=== PATIENT | female | born 1980 | race Caucasian/White ===

== ENCOUNTER 2017-05-20 05:56 | Observation (INO) | payer OTHER ==
--- NOTE | 2017-05-20 07:07 | XR ---
RIGHT ANKLE 3 VIEWS INDICATION: Right ankle pain COMPARISON: None FINDINGS: AP, mortise, and lateral views of the right ankle are obtained. The ankle mortise is incongruent and there is widening of the syndesmosis. There is an acute traumatic mildly displaced spiral fracture of the distal fibula at the level of the tibial plafond. A nondisplaced fracture of the posterior malleolus is suggested on the lateral view. There is widening of the medial tibiotalar joint space compatible with deltoid ligament tear, associated with a 5.6 mm avulsion fracture from the medial malleolus. The talar dome is intact. There is circumferential soft tissue swelling about the ankle. IMPRESSION: Acute trimalleolar ankle fracture compatible with supination external rotation stage IV injury.
[2017-05-20] MEDS ORDERED: KETOROLAC 30 MG/ML 1 ML VIAL IVP STA (07:46)
--- NOTE | 2017-05-20 07:51 | ED ---
General Adult HPI - General Chief complaint: Extremity Injury, Lower Stated complaint: Fall/Ankle Injury Time Seen by Provider: 05/20/17 07:07 Source: patient, RN notes reviewed, old records reviewed Mode of arrival: ambulatory Limitations: no limitations - History of Present Illness Initial comments: 36-year-old female presents with right ankle pain. Patient states she fell down several steps, she does admit to drinking alcohol. Believes she rolled her right ankle. She has been unable to cannulate on that since the injury. This occurred just prior to arrival. Denies any head or neck trauma. Denies any other extremity pain. No abdominal pain or chest pain. Patient is otherwise healthy, she takes no blood thinners. - Related Data Home Medications Medication Instructions Recorded Confirmed FLUoxetine HCL [PROzac] 40 mg PO DAILY 05/20/17 05/20/17 Allergies Allergy/AdvReac Type Severity Reaction Status Date / Time sertraline [From Zoloft] Allergy Anaphylaxis Verified 05/20/17 06:04 Review of Systems ROS Statement: Those systems with pertinent positive or pertinent negative responses have been documented in the HPI. ROS Other: All systems not noted in ROS Statement are negative. Past Medical History Past Medical History: No Reported History History of Any Multi-Drug Resistant Organisms: None Reported Past Surgical History: Section, Tubal Ligation Past Psychological History: Depression Smoking Status: Current every day smoker Past Alcohol Use History: Daily Past Drug Use History: None Reported General Exam Limitations: no limitations General appearance: alert, in no apparent distress, appears intoxicated Head exam: Present: atraumatic, normocephalic Eye exam: Present: normal appearance, PERRL ENT exam: Present: normal exam Neck exam: Present: normal inspection, full ROM. Absent: tenderness, meningismus Respiratory exam: Present: normal lung sounds bilaterally. Absent: respiratory distress, wheezes Cardiovascular Exam: Present: regular rate, normal rhythm GI/Abdominal exam: Present: soft. Absent: distended, tenderness Extremities exam: Present: tenderness, joint swelling, other (Right ankle, splint applied by EMS prior to arrival, near normal alignment, 2+ DP pulse) Neurological exam: Present: alert, oriented X3. Absent: motor sensory deficit Psychiatric exam: Present: normal affect, normal mood Skin exam: Present: warm, dry, intact. Absent: cyanosis, diaphoretic Course Vital Signs 05/20/17 05:58 Temperature 97.9 F Pulse Rate 69 Respiratory 20 Rate Blood Pressure 113/80 O2 Sat by Pulse 100 Oximetry Procedures - Orthopedic Fracture Reduction Fracture #1 Consent Obtained: verbal consent Time Out Performed: Yes Side: right Fracture Reduction Location: tibia, fibula Analgesia: other (Toradol, Morphine, and clinical intoxication) Technique: direct manipulation Post Reduction X-rays Demonstrate: acceptable reduction Post-Reduction Neuro Exam: intact Post-Reduction Vascular Exam: intact Splint Applied: Yes Patient Tolerated Procedure: well - Orthopedic Splinting/Casting Injury #1 Side: right Lower Extremity Injury Location: ankle Lower Extremity Immobilizer: posterior splint, stirrup splint Medical Decision Making - Medical Decision Making 36-year-old female presenting with right ankle pain. Patient was drinking alcohol at home, she fell down several steps, rolling her right ankle. Splint applied by EMS prior to arrival. X-ray obtained, this does show a trimalleolar fracture. Reduction is performed, with Toradol and morphine, no need for conscious sedation secondary to patient's intoxication. Postreduction film shows improved alignment with worsening widening of the ankle mortise, repeat reduction is performed with some improvement in mortise spacing. Posterior mold with stirrup applied. Case discussed with Dr. Vallecillo, from orthopedics, patient will be admitted for further orthopedic evaluation, and pain control. - Lab Data Result diagrams: 05/20/17 08:23 05/20/17 08:23 Lab Results 05/20/17 05/20/17 05/20/17 Range/Units 07:30 08:23 08:23 WBC 19.5 H (3.8-10.6) k/uL RBC 4.65 (3.80-5.40) m/uL Hgb 14.3 (11.4-16.0) gm/dL Hct 43.4 (34.0-46.0) % MCV 93.3 (80.0-100.0) fL MCH 30.7 (25.0-35.0) pg MCHC 32.9 (31.0-37.0) g/dL RDW 12.1 (11.5-15.5) % Plt Count 263 (150-450) k/uL Neutrophils % 80 % Lymphocytes % 15 % Monocytes % 4 % Eosinophils % 1 % Basophils % 0 % Neutrophils # 15.5 H (1.3-7.7) k/uL Lymphocytes # 2.9 (1.0-4.8) k/uL Monocytes # 0.8 (0-1.0) k/uL Eosinophils # 0.1 (0-0.7) k/uL Basophils # 0.1 (0-0.2) k/uL PT 10.2 (9.0-12.0) sec INR 1.0 (<1.2) APTT 24.2 (22.0-30.0) sec Sodium (137-145) mmol/L Potassium (3.5-5.1) mmol/L Chloride (98-107) mmol/L Carbon Dioxide (22-30) mmol/L Anion Gap mmol/L BUN (7-17) mg/dL Creatinine (0.52-1.04) mg/dL Est GFR (CKD-EPI)AfAm (>60 ml/min/1.73 sqM) Est GFR (CKD-EPI)NonAf (>60 ml/min/1.73 sqM) Glucose (74-99) mg/dL Calcium (8.4-10.2) mg/dL Total Bilirubin (0.2-1.3) mg/dL AST (14-36) U/L ALT (9-52) U/L Alkaline Phosphatase (38-126) U/L Total Protein (6.3-8.2) g/dL Albumin (3.5-5.0) g/dL Urine HCG, Qual Not Detected (Not Detectd) 05/20/17 Range/Units 08:23 WBC (3.8-10.6) k/uL RBC (3.80-5.40) m/uL Hgb (11.4-16.0) gm/dL Hct (34.0-46.0) % MCV (80.0-100.0) fL MCH (25.0-35.0) pg MCHC (31.0-37.0) g/dL RDW (11.5-15.5) % Plt Count (150-450) k/uL Neutrophils % % Lymphocytes % % Monocytes % % Eosinophils % % Basophils % % Neutrophils # (1.3-7.7) k/uL Lymphocytes # (1.0-4.8) k/uL Monocytes # (0-1.0) k/uL Eosinophils # (0-0.7) k/uL Basophils # (0-0.2) k/uL PT (9.0-12.0) sec INR (<1.2) APTT (22.0-30.0) sec Sodium 140 (137-145) mmol/L Potassium 4.3 (3.5-5.1) mmol/L Chloride 107 (98-107) mmol/L Carbon Dioxide 22 (22-30) mmol/L Anion Gap 11 mmol/L BUN 9 (7-17) mg/dL Creatinine 0.62 (0.52-1.04) mg/dL Est GFR (CKD-EPI)AfAm >90 (>60 ml/min/1.73 sqM) Est GFR (CKD-EPI)NonAf >90 (>60 ml/min/1.73 sqM) Glucose 111 H (74-99) mg/dL Calcium 8.6 (8.4-10.2) mg/dL Total Bilirubin 0.2 (0.2-1.3) mg/dL AST 57 H (14-36) U/L ALT 58 H (9-52) U/L Alkaline Phosphatase 62 (38-126) U/L Total Protein 6.1 L (6.3-8.2) g/dL Albumin 3.6 (3.5-5.0) g/dL Urine HCG, Qual (Not Detectd) Disposition Clinical Impression: Closed right trimalleolar fracture Disposition: ADMITTED IP TO THIS [facility] Condition: Stable Referrals: None,Stated [REFERRING] - 1-2 days Decision to Admit Reason: Admit from [facility] Decision Date: 05/20/17 Decision Time: 09:23
[2017-05-20] MEDS ORDERED: SODIUM CHLORIDE 0.9% 500 ML IV ONE (08:04)
--- NOTE | 2017-05-20 08:25 | XR ---
EXAMINATION TYPE: XR ankle limited RT DATE OF EXAM: 05/20/2017 CLINICAL HISTORY: Right ankle fracture post reduction TECHNIQUE: Portable frontal and lateral images of the right ankle are obtained. COMPARISON: Right ankle x-ray earlier today FINDINGS: There is interval placement of overlying splint material which is noted to lower radiograp hic sensitivity for evaluation of fine anatomic detail. There is improved alignment of oblique fracture distal fibula after reduction and splinting. Possible posterior malleolus fracture is not well visualized. A 6 mm avulsion fragment from the medial malleo liliana also is not as well-visualized. There is more prominent widening of the ankle mortise after reduc tion especially anteriorly. IMPRESSION: There is improved alignment lateral malleolus. There is increased ankle mortise widening noted after reduction.
[2017-05-20 08:40] LABS: Basophils # (A) 0.1 k/uL (0-0.2); Basophils % (A) 0 %; Eosinophils # (A) 0.1 k/uL (0-0.7); Eosinophils % (A) 1 %; HCT 43.4 % (34.0-46.0); HGB 14.3 gm/dL (11.4-16.0); Lymphocytes # (A) 2.9 k/uL (1.0-4.8); Lymphocytes % (A) 15 %; MCH 30.7 pg (25.0-35.0); MCHC 32.9 g/dL (31.0-37.0); MCV 93.3 fL (80.0-100.0); Mean Platelet Volume 7.2; Monocytes # (A) 0.8 k/uL (0-1.0); Monocytes % (A) 4 %; Neutrophils # (A) 15.5 k/uL (1.3-7.7); Neutrophils % (A) 80 %; Platelet Count 263 k/uL (150-450); RBC 4.65 m/uL (3.80-5.40); RDW 12.1 % (11.5-15.5); WBC 19.5 k/uL (3.8-10.6)
[2017-05-20] MEDS ORDERED: MORPHINE SULFATE 4 MG/ML SYRINGE IVP STA (08:44)
[2017-05-20 08:52] LABS: ALT 58 U/L (9-52); AST 57 U/L (14-36); Albumin 3.6 g/dL (3.5-5.0); Alkaline Phosphatase 62 U/L (38-126); Anion Gap 11 mmol/L; Blood Urea Nitrogen 9 mg/dL (7-17); Calcium 8.6 mg/dL (8.4-10.2); Carbon Dioxide 22 mmol/L (22-30); Chloride 107 mmol/L (98-107); Glucose 111 mg/dL (74-99); Potassium 4.3 mmol/L (3.5-5.1); Sodium 140 mmol/L (137-145); Total Bilirubin 0.2 mg/dL (0.2-1.3); Total Protein 6.1 g/dL (6.3-8.2)
[2017-05-20 08:53] LABS: Partial Thromboplastin Time 24.2 sec (22.0-30.0); Prothrombin Time 10.2 sec (9.0-12.0)
--- NOTE | 2017-05-20 09:04 | XR ---
EXAMINATION TYPE: XR ankle limited RT DATE OF EXAM: 05/20/2017 CLINICAL HISTORY: Post second reduction. TECHNIQUE: Portable frontal image of the right ankle are obtained. COMPARISON: Right ankle x-rays earlier today.. FINDINGS: There is redemonstration of overlying splint material which is noted to lower radiographic sensitivity. Widening of ankle mortise remains present but is improved from most recent prior. No ad ditional significant new findings. Persistent minimally displaced oblique fracture lateral malleolus stable. IMPRESSION: As above.
[2017-05-20] MEDS ORDERED: HYDROcodone/APAP 5-325MG 1 EACH TAB PO PRN (09:24)
[2017-05-20] MEDS ORDERED: KETOROLAC 30 MG/ML 1 ML VIAL IVP PRN (09:24)
[2017-05-20] MEDS ORDERED: NALOXONE 0.4 MG/ML 1 ML VIAL IV PRN (09:24)
[2017-05-20 10:08] VITALS: BMI 31.1
--- NOTE | 2017-05-20 12:56 | P.HPOR ---
History of Present Illness H&P Date: 05/20/17 Chief Complaint: Right ankle pain status post fall Patient is a very pleasant 36-year-old female who is seen and examined at the bedside for further evaluation for her right trimalleolar ankle fracture. Patient states she sustained a fall this morning at approximately 5 AM when she fell down some steps. Since that time she's had significant right ankle pain and has been unable to ambulate. She was brought to the emergency department for further evaluation. Evidence of right ankle fracture was found at that time with ankle mortise disruption. Reduction was performed patient was placed in a splint. Reduction did not appear to be adequate and a second reduction was placed with re-splinting applied. Patient was admitted to the hospital for pain control and further evaluation. Patient does admit to drinking alcoholic beverages yesterday. She states she does have a history of consuming approximately 4 beers per day. Patient is a current smoker. Other than pain at the right ankle, she denies any other pain symptoms. She denies loss of consciousness. Patient states she is on Prozac in the outpatient setting which she takes at nighttime. She has no other complaints. She has continued to take [place], morphine, and Toradol for some control her symptoms. Past Medical History Past Medical History: No Reported History History of Any Multi-Drug Resistant Organisms: None Reported Past Surgical History: Section, Tubal Ligation Past Psychological History: Depression Smoking Status: Current every day smoker Past Alcohol Use History: Daily Past Drug Use History: None Reported - Past Family History Mother Family Medical History: Hypertension Additional Family Medical History / Comment(s): skin CA Father Additional Family Medical History / Comment(s): skin CA Medications and Allergies Home Medications Medication Instructions Recorded Confirmed Type FLUoxetine HCL [PROzac] 40 mg PO HS 05/20/17 05/20/17 History Allergies Allergy/AdvReac Type Severity Reaction Status Date / Time sertraline [From Zoloft] Allergy Anaphylaxis Verified 05/20/17 09:39 Physical Examination Physical Exam: Patient is awake, alert, and oriented 3 Vital signs stable Good chest excursion with deep inspiration and expiration Abdomen soft nontender No signs or symptoms of DVT; no calf pain Right lower extremity is placed in a bulky splint with Cesar wrap Dressing is clean, dry, and intact Patient is able to wiggle toes of the right lower extremity without significant difficulty No pain with palpation over the right knee or upper calf Pain with movement of her right toes Neurovascularly intact over the toes of the right foot Results Pertinent studies: Right ankle x-ray taken on 05/20/2017 status post second reduction at 8:50 AM: Overlying splint material intact; improvement of ankle mortise widening as compared to her previous imaging but continues to be present; no additional significant new findings; persistent minimally displaced oblique fracture of the lateral malleolus Right ankle x-ray taken on 05/20/2017 status post reduction at 8:03 AM: Overlying splint material intact; improvement of the overall alignment of the lateral malleolus; increased ankle mortise widening noted after reduction Right ankle x-ray taken on 05/20/2017 6:09 AM: Acute trimalleolar ankle fracture compatible with supination and external rotation, stage IV injury - Labs Labs: Abnormal Lab Results - Last 24 Hours (Table) 05/20/17 05/20/17 Range/Units 08:23 08:23 WBC 19.5 H (3.8-10.6) k/uL Neutrophils # 15.5 H (1.3-7.7) k/uL Glucose 111 H (74-99) mg/dL AST 57 H (14-36) U/L ALT 58 H (9-52) U/L Total Protein 6.1 L (6.3-8.2) g/dL H & H 05/20/17 Range/Units 08:23 Hgb 14.3 (11.4-16.0) gm/dL Hct 43.4 (34.0-46.0) % Coagulation 05/20/17 Range/Units 08:23 INR 1.0 (<1.2) Result Diagrams: 05/20/17 08:23 05/20/17 08:23 Assessment and Plan Assessment: Assessment: Acute traumatic right ankle trimalleolar fracture Acute right ankle pain Status post fall Alcohol dependence Current smoker (1) Status post fall Current Visit: Yes Status: Acute Code(s): Z91.81 - HISTORY OF FALLING SNOMED Code(s): 938829827 (2) Acute right ankle pain Current Visit: Yes Status: Acute Code(s): M25.571 - PAIN IN RIGHT ANKLE AND JOINTS OF RIGHT FOOT SNOMED Code(s): 96144785075126 (3) Alcohol dependence Current Visit: Yes Status: Acute Code(s): F10.20 - ALCOHOL DEPENDENCE, UNCOMPLICATED SNOMED Code(s): 94178796 (4) Current smoker Current Visit: Yes Status: Acute Code(s): F17.200 - NICOTINE DEPENDENCE, UNSPECIFIED, UNCOMPLICATED SNOMED Code(s): 72815144 (5) Closed right trimalleolar fracture Current Visit: Yes Status: Acute Code(s): S82.851A - DISPLACED TRIMALLEOLAR FRACTURE OF RIGHT LOWER LEG, INIT SNOMED Code(s): 8901259 Plan: Plan: 1. Patient has been discussed in detail with Dr. Vallecillo. After further reviewing the imaging, physical examination the patient, and further discussion with the patient, patient will need to undergo surgical intervention for her right trimalleolar ankle fracture. X-rays were taken in the emergency department for further evaluation. We will plan to obtain a CT of the right ankle for further evaluation. Patient will continue to remain in the hospital on oral and IV pain medications. We'll plan to transition her from IV medications to oral medications for pain control only. If her pain is really more controlled, we'll plan for discharge home tomorrow, 05/21/2017. She will plan to be seen and evaluated in the office on Sunday or Sunday of this week and will subsequently plan for surgical intervention for her right ankle the following Sunday or Sunday. We discussed patient will continue to be nonweightbearing on the right lower extremity. She should elevate and apply ice for comfort support as needed. She is to keep her splint over the right lower extremity clean, dry, and intact. 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 2. Order has been placed for CT the right ankle 3. We will continue to follow patient closely; patient is able to have better pain control at the fracture sites of the right ankle, we'll plan for discharge home tomorrow, 05/21/2017 4. Continue pain control; discontinue Toradol. Plan to transition from IV pain medications to oral pain medications. We'll increase [place] 5 mg/325 mg 1- 2 tabs every 4 hours as needed for pain 5. Patient has been discussed with Dr. Vallecillo in detail and he agrees with this plan Time with Patient: Greater than 30
[2017-05-20] MEDS: MORPHINE SULFATE 4 MG/ML SYRINGE IV PRN ×3 (13:26→23:20)
[2017-05-20 15:32] VITALS: RESP 16
[2017-05-20] MEDS: HYDROcodone/APAP 5-325MG 1 EACH TAB PO PRN ×2 (15:47→20:38)
--- NOTE | 2017-05-20 16:21 | CT ---
EXAMINATION TYPE: CT ankle RT wo con DATE OF EXAM: 05/20/2017 COMPARISON: 05/20/2017 HISTORY: Patient complains of ankle pain. CT DLP: 131.9 mGycm Automated exposure control for dose reduction was used. TECHNIQUE: Contiguous axial CT slices of the right lower extremity were obtained without intravenous contrast. FINDINGS: There is redemonstration of the known trimalleolar fracture. The posterior malleolus fracture is comm inuted but the primary fracture site is nondisplaced with small surrounding minimally displaced commi nuted fracture fragments. The lateral malleolus are or fibular fracture is obliquely oriented with th e distal fracture fragment displaced 4 mm posteriorly. This is also comminuted and extensive ankle aisha int. The medial malleolus fracture fragment representing the avulsion fracture is demonstrated with n o confirmed donor site. The fracture fragment is seen between the medial malleolus and talus measurin g 1.1 cm. There is diffuse surrounding soft tissue swelling and lateral subluxation of the talus. Evaluation of the tendons is limited on CT, especially given the surrounding soft tissue swelling. Ev aluation with MR could further assess these tendons. IMPRESSION: ALTHOUGH THERE IS REDEMONSTRATION OF THE KNOWN TRIMALLEOLAR FRACTURE OF THE DONOR SITE FOR THE MEDIAL MALLEOLUS ARE 1.1 CM FRACTURE FRAGMENT IS NOT DEFINITIVELY IDENTIFIED. POSTERIOR MALLEOLI AIR AND LA TERAL MALLEOLUS FRACTURES ARE DESCRIBED ABOVE WITH EXTENSIVE OVERLYING SOFT TISSUE SWELLING AND LIMIT ED EVALUATION OF THE TENDONS.
[2017-05-20] MEDS ORDERED: FLUoxetine HCL 20 MG CAP PO SCH (21:00)
--- NOTE | 2017-05-20 23:43 | P.CONS ---
History of Present Illness - Reason for Consult Consult date: 05/20/17 Medical management - Chief Complaint Right ankle pain - History of Present Illness Patient is a 36-year-old female with a known history of nicotine addiction, alcohol abuse with 4 beers on daily basis and depression came to the hospital with complaints of right ankle pain status post fall. Apparently patient fell on the steps in front of home. Since then patient is having right ankle pain. Patient came to ER for further evaluation. CT of the right ankle showed trimalleolar fracture. Trace patient denied any chest pain or shortness of breath. Patient tripped over and fell. Denied any headache or dizziness. No nausea vomiting abdominal pain. No recent illnesses or sick contacts at home. Patient drinks on daily basis. Serum alcohol 101 on admission Review of Systems Constitutional: Patient denies any fever or chills . No generalized weakness or weight loss. Abdomen: Patient denied nausea vomiting and diarrhea and abdominal pain. Cardiovascular: Patient denies any chest pain or short of breath no palpitations. Respiratory: patient denied any cough is from production. No shortness of breath Neurologic: Patient denied any numbness or tingling headache. Musculoskeletal: Right ankle pain. Patient denies any complaints of joint swelling or deformity. Skin: Negative Psychiatric: Negative Endocrine: No heat or cold intolerance. No recent weight gain. Genitourinary: No dysuria or hematuria. All other 14 point ROS negative except the above Past Medical History Past Medical History: No Reported History History of Any Multi-Drug Resistant Organisms: None Reported Past Surgical History: Section, Tubal Ligation Past Psychological History: Depression Smoking Status: Current every day smoker Past Alcohol Use History: Daily Past Drug Use History: None Reported - Past Family History Mother Family Medical History: Hypertension Additional Family Medical History / Comment(s): skin CA Father Additional Family Medical History / Comment(s): skin CA Medications and Allergies Home Medications Medication Instructions Recorded Confirmed Type FLUoxetine HCL [PROzac] 40 mg PO HS 05/20/17 05/20/17 History Allergies Allergy/AdvReac Type Severity Reaction Status Date / Time sertraline [From Zoloft] Allergy Anaphylaxis Verified 05/20/17 09:39 Physical Exam Vitals: Vital Signs Temp Pulse Pulse Resp BP BP Pulse Ox 05/20/17 10:11 98.3 F 73 20 110/71 96 05/20/17 09:47 99.1 F 76 18 101/58 98 03/11/18 05:58 97.9 F 69 20 113/80 100 Intake and Output 05/19/17 05/20/17 05/20/17 21:59 06:59 14:59 Other: Weight 74.843 kg Patient Weight 05/21/17 06:59 Weight 74.843 kg PHYSICAL EXAMINATION: Patient is lying in the bed comfortably, no acute distress, awake alert and oriented.. HEENT: Normocephalic. Neck is supple. Pupils reactive. Nostrils clear. Oral cavity is moist. Ears reveal no drainage. Neck reveals no JVD, carotid bruits, or thyromegaly. CHEST EXAMINATION: Trachea is central. Symmetrical expansion. Lung melo clear to auscultation and percussion. CARDIAC: Normal S1, S2 with no gallops. No murmurs ABDOMEN: Soft. Bowel sounds normal. No organomegaly. No abdominal bruits. Extremities: reveal no edema. No clubbing or cyanosis Neurologically awake, alert, oriented x3 with well-coordinated movements. No focal deficits noted Skin: No rash or skin lesions. Psychiatric: Coperative. Nonsuicidal Musculoskeletal: Right ankle splint in place Results CBC & Chem 7: 05/20/17 08:23 05/20/17 08:23 Labs: Abnormal Lab Results - Last 24 Hours (Table) 05/20/17 05/20/17 Range/Units 08:23 08:23 WBC 19.5 H (3.8-10.6) k/uL Neutrophils # 15.5 H (1.3-7.7) k/uL Glucose 111 H (74-99) mg/dL AST 57 H (14-36) U/L ALT 58 H (9-52) U/L Total Protein 6.1 L (6.3-8.2) g/dL Assessment and Plan Assessment: Acute right bimalleolar ankle fracture status post fall Alcohol alcohol intoxication on admission Alcohol abuse Nicotine addiction Depression leukocytosis mostly reactive DVT prophylaxis Plan: Patient will be continued on pain medications and bowel regimen. DVT prophylaxis. We'll check TSH level. IV fluids. Thiamine and multivitamins. We will repeat labs tomorrow and monitor for infection. Orthopedics is on board. Further recommendations based on clinical course. We will continue to follow with you. Thank you for your consult Time with Patient: Greater than 30
[2017-05-21] MEDS: HYDROcodone/APAP 5-325MG 1 EACH TAB PO PRN ×3 (01:13→09:55)
[2017-05-21] MEDS: SODIUM CHLORIDE 0.9% 1,000 ML IV SCH ×2 (01:14→11:39)
[2017-05-21] MEDS: MORPHINE SULFATE 4 MG/ML SYRINGE IV PRN (03:41)
--- NOTE | 2017-05-21 08:51 | P.DS ---
Providers Date of admission: 05/20/17 09:24 Expected date of discharge: 05/21/17 Attending physician: Harry Vallecillo Primary care physician: Jenny Jin - Discharge Diagnosis(es) (1) Status post fall Current Visit: Yes Status: Acute (2) Acute right ankle pain Current Visit: Yes Status: Acute (3) Alcohol dependence Current Visit: Yes Status: Acute (4) Current smoker Current Visit: Yes Status: Acute (5) Closed right trimalleolar fracture Current Visit: Yes Status: Acute Hospital Course: This is a pleasant 36-year-old female who presented with right trimalleolar ankle fracture status post fall. She presented to the emergency department for further evaluation. She is status post reduction 2 with splint placement over the right lower extremity. She was admitted for pain control. Her pain has been better controlled today as compared to yesterday. A CT of the 8 ankle was also performed yesterday in anticipation for surgical intervention. Patient has remained nonweightbearing on the right lower extremity. She has kept the right lower extremity elevated and has applied ice for comfort as needed. We will plan for her discharge today, 05/21/2017. She will be discharged home. We will plan have her follow-up with Dr. Vallecillo either today, 05/21/2017, or tomorrow, 05/22/2017, for further evaluation of her right ankle. We discussed after that evaluation, patient will most likely be scheduled for surgical intervention next Sunday or Sunday. We discussed patient will continue to be nonweightbearing on the right lower extremity. She should elevate and apply ice for comfort support as needed. She is to keep her splint over the right lower extremity clean, dry, and intact. She may use crutches to aid in ambulation as needed. Prescription for crutches has been written and provided to case management. She is given a prescription for [place] 5 mg/325 mg 1-2 tabs every 6 hours as needed for pain. She may resume fluoxetine as previously prescribed. Physical Exam on day of discharge: Patient is awake, alert, and oriented 3 Vital signs stable Good chest excursion with deep inspiration and expiration Abdomen soft nontender No signs or symptoms of DVT; no calf pain Right lower extremity is placed in a bulky splint with Cesar wrap Dressing is clean, dry, and intact Patient is able to wiggle toes of the right lower extremity without significant difficulty No pain with palpation over the right knee or upper calf Pain with movement of her right toes Neurovascularly intact over the toes of the right foot Pertinent studies: CT of the right ankle: Redemonstration of known bimalleolar fracture; posterior malleolus fracture is comminuted but the primary fracture site is nondisplaced with small surrounding minimally displaced comminuted fracture fragment; lateral malleolus fibular fracture is obliquely oriented with the distal fracture fragment displaced 4 mm posteriorly; medial malleolus fracture fragment representing the avulsion fracture is demonstrated with no confirmed donor site; comminuted and extensive ankle joint; diffuse surrounding soft tissue swelling in lateral subluxation of the talus Right ankle x-ray taken on 05/20/2017 status post second reduction at 8:50 AM: Overlying splint material intact; improvement of ankle mortise widening as compared to her previous imaging but continues to be present; no additional significant new findings; persistent minimally displaced oblique fracture of the lateral malleolus Right ankle x-ray taken on 05/20/2017 status post reduction at 8:03 AM: Overlying splint material intact; improvement of the overall alignment of the lateral malleolus; increased ankle mortise widening noted after reduction Right ankle x-ray taken on 05/20/2017 6:09 AM: Acute trimalleolar ankle fracture compatible with supination and external rotation, stage IV injury Patient Condition at Discharge: Stable Plan - Discharge Summary Discharge Rx Participant: No New Discharge Prescriptions: New Hydrocodone/Acetaminophen [[place] 5-325] 1 - 2 each PO Q6HR PRN #90 tab PRN Reason: Pain No Action FLUoxetine HCL [PROzac] 40 mg PO HS Discharge Medication List FLUoxetine HCL [PROzac] 40 mg PO HS 05/20/17 [History] Hydrocodone/Acetaminophen [[place] 5-325] 1 - 2 each PO Q6HR PRN #90 tab 05/21/17 [Rx] Follow up Appointment(s)/Referral(s): None,Stated [REFERRING] - 1-2 days Harry Vallecillo MD [STAFF PHYSICIAN] - 1-2 Days (Patient may follow-up with Dr. Vallecillo at [facility] in 1-2 days following discharge.) Activity/Diet/Wound Care/Special Instructions: 1. Nonweightbearing on the right lower extremity 2. Elevate and apply ice for comfort support as needed over the right lower extremity 3. Keep splint over the right lower extremity clean, dry, and intact 4. May use crutches to aid in ambulation as needed 5. Take medications as prescribed Discharge Disposition: HOME SELF-CARE
[2017-05-21] MEDS ORDERED: HEPARIN SODIUM,PORCINE 5,000 UNIT/ML 1 ML VIAL SQ SCH (09:00)
[2017-05-21 09:11] VITALS: BP 127/80; PULSE 72; TEMP 97.9
[2017-05-21] MEDS ORDERED: MULTIVITAMINS, THERA 1 EACH TAB PO SCH (12:00)
[2017-05-21] MEDS ORDERED: THIAMINE 100 MG TAB PO SCH (12:00)
--- NOTE | 2017-05-21 23:09 | P.PN ---
Subjective Progress Note Date: 05/21/17 Principal diagnosis: Right ankle fracture trimalleolar Patient is a 36-year-old female with a known history of nicotine addiction, alcohol abuse with 4 beers on daily basis and depression came to the hospital with complaints of right ankle pain status post fall. Apparently patient fell on the steps in front of home. Since then patient is having right ankle pain. Patient came to ER for further evaluation. CT of the right ankle showed trimalleolar fracture. Trace patient denied any chest pain or shortness of breath. Patient tripped over and fell. Denied any headache or dizziness. No nausea vomiting abdominal pain. No recent illnesses or sick contacts at home. Patient drinks on daily basis. Serum alcohol 101 on admission 05/21/2017 Patient denied any new complaints today. Right ankle pain is controlled. With medications. No fever no chills. Patient is being discharged home to follow- up as an outpatient with orthopedic clinic otherwise patient is stable to be discharged. No nausea vomiting or abdominal pain. Counseled for alcohol abuse. No other acute overnight issues Current medications reviewed Objective - Vital Signs Vital signs: Vital Signs Temp 97.9 F 05/21/17 07:00 Pulse 72 05/21/17 07:00 Resp 16 05/21/17 07:00 BP 127/80 05/21/17 07:00 Pulse Ox 96 05/21/17 07:00 Intake & Output 05/21/17 05/21/17 05/22/17 06:59 18:59 06:59 Intake Total 615 800 Balance 615 800 Intake: IV 615 800 Sodium Chloride 0.9% 1, 600 800 000 ml @ 100 mls/hr IV . Q10H [facility] Rx#:[id number] saline flush 15 Other: Voiding Method Bedside Commode Bedside Commode # Voids 2 2 - Exam PHYSICAL EXAMINATION: Patient is lying in the bed comfortably, no acute distress, awake alert and oriented.. HEENT: Normocephalic. Neck is supple. Pupils reactive. Nostrils clear. Oral cavity is moist. Ears reveal no drainage. Neck reveals no JVD, carotid bruits, or thyromegaly. CHEST EXAMINATION: Trachea is central. Symmetrical expansion. Lung melo clear to auscultation and percussion. CARDIAC: Normal S1, S2 with no gallops. No murmurs ABDOMEN: Soft. Bowel sounds normal. No organomegaly. No abdominal bruits. Extremities: reveal no edema. No clubbing or cyanosis Neurologically awake, alert, oriented x3 with well-coordinated movements. No focal deficits noted Skin: No rash or skin lesions. Psychiatric: Coperative. Nonsuicidal Musculoskeletal: Right ankle splint in place.. - Labs CBC & Chem 7: 05/20/17 08:23 05/20/17 08:23 Assessment and Plan Assessment: Acute right bimalleolar ankle fracture status post fall Alcohol alcohol intoxication on admission Alcohol abuse Nicotine addiction Depression leukocytosis mostly reactive DVT prophylaxis Plan: Patient will be continued on pain medications and bowel regimen. DVT prophylaxis. Ordered TSH level. IV fluids. Thiamine and multivitamins. Further recommendations based on clinical course. We will continue to follow with you. Thank you for your consult
== END 2017-05-21 15:20 | disposition home or self-care (01) ==
LOC: EC 05:56 → 3SUR 09:24 → INTOOBSV 09:24 → MERGE 09:24 → 5ONC 09:50 → UNDODISIN 05-21 15:20
PROVIDERS: ADMIT Orthopaedic Surgery; ATTEND Orthopaedic Surgery
DX: S82.851A Displaced trimalleolar fracture of right lower leg, initial encounter for closed fracture (principal); F10.229 Alcohol dependence with intoxication, unspecified; F32.9 Major depressive disorder, single episode, unspecified; F17.200 Nicotine dependence, unspecified, uncomplicated; Z79.899 Other long term (current) drug therapy; Z88.8 Allergy status to other drugs, medicaments and biological substances; Z91.81 History of falling; Y90.5 Blood alcohol level of 100-119 mg/100 ml; W10.9XXA Fall (on) (from) unspecified stairs and steps, initial encounter; Y92.008 Other place in unspecified non-institutional (private) residence as the place of occurrence of the external cause; Z71.41 Alcohol abuse counseling and surveillance of alcoholic
CPT/HCPCS: 96376 ×2; 96372; 96374; 96375; 99285; 27818; 36415; 97162; 80053; 85025; 85610; 85730; 81025; 80320; 73600; 73610; 73700; G0378 ×2; J2270 ×2; J1644; J1885

== ENCOUNTER 2017-05-25 10:47 | Day surgery (SDC) | payer OTHER ==
[2017-05-23 14:58] VITALS: BMI 29.8
[~2017-05-25 10:47] MED LIST: DEXAMETHASONE SOD PHOSPHATE 10 MG/ML 1 ML VIAL IV ONE; LACTATED RINGERS 1,000 ML IV ONE; LIDOCAINE 1% 20 ML VIAL (10MG/ML) FOR IV START INTRADERMA PRN; MIDAZOLAM 2 MG/2 ML VIAL IV PRN; MORPHINE SULFATE 2 MG/ML SYRINGE IV PRN; ONDANSETRON 4 MG/2 ML VIAL IVP ONE; SCOPOLAMINE 1.5MG/72HR PATCH TRANSDERM ONE; ceFAZolin IN SWFI 2 GM/20 ML SYRINGE IVP ONE
[2017-05-25] MEDS ORDERED: fentaNYL (PF) 50 MCG/ML 2 ML AMP ONE ×2 (12:06→12:59)
[2017-05-25] MEDS ORDERED: ROCURONIUM BROMIDE 10 MG/ML 10 ML VIAL IV ONE (12:59)
[2017-05-25] MEDS ORDERED: LIDOCAINE 2%-EPI 1:100,000 20 ML VIAL ONE (12:59)
[2017-05-25] MEDS ORDERED: SUCCINYLCHOLINE CHLORIDE 100 MG/5 ML SYR IV ONE (12:59)
[2017-05-25] MEDS ORDERED: GLYCOPYRROLATE 0.2 MG/ML 2 ML VIAL ONE (12:59)
[2017-05-25] MEDS ORDERED: PROPOFOL 10 MG/ML 20 ML VIAL IV ONE (12:59)
[2017-05-25] MEDS ORDERED: ePHEDrine SULFATE/0.9% NACL/PF 50 MG/5 ML SYRINGE IV ONE (12:59)
[2017-05-25] MEDS ORDERED: ceFAZolin 1,000 MG in SODIUM CHLORIDE 0.9% 1,000 ML IRRIGATION ONE (12:59)
[2017-05-25] MEDS ORDERED: NEOSTIGMINE 1 MG/ML 10 ML VIAL ONE (12:59)
[2017-05-25] MEDS ORDERED: ROPIVACAINE 5 MG/ML 30 ML VIAL ONE (12:59)
[2017-05-25] MEDS ORDERED: LACTATED RINGERS 1,000 ML IV ONE (13:12)
--- NOTE | 2017-05-25 14:46 | FL ---
Fluoroscopy History: ORIF 35 sec Fl, 2 images scanned
--- NOTE | 2017-05-25 15:05 | P.OP ---
Date of Procedure: 05/25/17 Procedure(s) Performed: PREOPERATIVE DIAGNOSES: 1. Right ankle lateral malleolus fracture and grade III deltoid ligament injury POSTOPERATIVE DIAGNOSES: Right ankle lateral and grade 3 deltoid ligament injury PROCEDURES PERFORMED: 1. Right ankle lateral malleolus fracture open reduction and internal fixation. 2. Right ankle open removal of intraarticular debris 3. Right ankle deltoid ligament repair ANESTHESIA: foreign banknote teller: Mary Barron PA-C (assistance with exposure, hemostasis, retraction, fixation, closure, dressing, splint) COMPLICATIONS: None ESTIMATED BLOOD LOSS: Less than 10 mL. TOURNIQUET: approximately 70 minutes DISPOSITION: To post-anesthesia care unit INDICATIONS: The patient is a 36-year-old female, who presents to the operating room today for fixation of ankle fracture. The fracture is unstable, with a fracture of the lateral malleolus that is high enough to produce talar instability along with a severe completely disrupted deltoid ligament. There appears to be intraarticular debris which is preventing full reduction of the ankle. I have discussed these issues with the patient, who wishes to proceed with the operative plan of removal of intraarticular debris and open reduction internal fixation of the ankle. I have explained the details of this surgery thoroughly and also explained the potential risks and complications. These are inclusive of, but not limited to: bleeding, infection, scarring, discomfort, blood vessel and nerve damage, stiffness, weakness, need for further surgery, failure to relieve symptoms, persistence or worsening of problems, , and other risks. The patient is aware of these risks and agrees to proceed with surgery. The consent form has been signed. PROCEDURE: After appropriate consent was obtained, the patient was taken to the operating room and placed supine on the operating table. General anesthesia was initiated. The ankle was removed from the splint and examined for any signs of significant fracture blisters or swelling that would prevent continuation of the surgery. Skin appeared healthy and intact, swellling was moderate but not excessive. The limb was prepped and draped in the usual aseptic fashion with ChloraPrep and the patient was given IV antibiotics. The tourniquet was then inflated to 350 mmHg after careful exsanguination of the limb. Time out was called, confirming patient identity, side, procedure, and administration of antibiotics. First, the medial injury was addressed first. An incision was created for approximately 1.5 inches on the medial aspect of the ankle, and carried down through skin sharply and then bluntly using a dissecting scissor down to fascia and periosteum. As this was a bimalleolar fracture, the ankle was able to be easily externally rotated such that visualization into the joint from the anteromedial aspect was clear. Intra-articular debris was present, consisting of the infolded deltoid ligament as well as organizing hematoma and a small bony fragment. This bony fragment did not have a clear origin. The deltoid ligament was somewhat floppy and had a tendency to re-interpose into the joint and therefore it was controlled with a number 2 FiberWire suture. This suture was then brought through remnants of the deltoid ligament at the medial talus and clamped, for later tying after the fibula had been repaired. Attention was then directed laterally. Incision was created laterally, centered over the fracture site, for a length of approximately 4 inches. The incision was carried down through skin and into subcutaneous tissues, and blunt dissection then proceeded down to fascia. Fascia was split in line with the incision and the peroneal muscles were retracted posteriorly. The fracture site was exposed with subperiosteal dissection for as much exposure of the bone as was necessary. Fracture hematoma was evacuated and the interior of the fracture site was meticulously cleansed with irrigation and manual extraction of organizing hematoma and bone debris. The fracture was minimally comminuted and oblique in orientation. The fracture was mobilized using a maguire elevator and reduction was accomplished using a bone clamp, which was also used to secure the fracture. Anatomic reduction was accomplished. An interfragmentary screw, anterior to posterior, was placed using lag technique. Next, a precontoured fibular plate from [employer] was selected for size and side. The proximal holes were filled with fully threaded 3.5 mm cortical screws. Distal holes were filled with 4 2.7 mm locking screws. No evidence of joint penetration on the mini-C-arm views was noted. The fracture was noted to be in anatomic position and stress testing under C- arm imaging showed no significant migration, shift, or tilt of the talus with external rotation stress, hindfoot inversion or eversion. This was even before tying of the deltoid ligament repair, which was then performed. Screw lengths were noted to be appropriate and the incision was then irrigated thoroughly using normal saline. Tourniquet was deflated and hemostasis was obtained using electrocautery. Fascial closure was performed with 0-Vicryl suture, subcutaneous closure with 2-0 Vicryl suture. Skin was closed with abhay. Sterile dressing was applied and well padded, well molded short leg splint was applied with the ankle in neutral. Patient tolerated the procedure well and taken to recovery room in stable condition. Sponge and needle counts were correct.
[2017-05-25 15:08] VITALS: RESP 16; TEMP 97
[2017-05-25] MEDS: fentaNYL (PF) 50 MCG/ML 2 ML AMP IVP ONE ×2 (15:26→15:38)
[2017-05-25 17:35] VITALS: BP 131/87; PULSE 91
== END 2017-05-25 17:17 | disposition home or self-care (01) ==
LOC: OR 10:47 → MERGE 12:30 → OR 17:17
PROVIDERS: ATTEND Orthopaedic Surgery
DX: S82.61XA Displaced fracture of lateral malleolus of right fibula, initial encounter for closed fracture (principal); S93.421A Sprain of deltoid ligament of right ankle, initial encounter; W10.9XXA Fall (on) (from) unspecified stairs and steps, initial encounter; F32.9 Major depressive disorder, single episode, unspecified; Z79.899 Other long term (current) drug therapy; Z88.8 Allergy status to other drugs, medicaments and biological substances; F17.210 Nicotine dependence, cigarettes, uncomplicated
CPT/HCPCS: 81025; 73600; 27792; 27695; C1713 ×2; J2250; J1100; J2710; J2405; J0690 ×2; J3010; J2795; J0330; J2704

== ENCOUNTER → 2020-06-21 | Outpatient (CLI) | payer OTHER ==
--- NOTE | 2020-06-21 09:44 | MM ---
Reason for exam: screening (asymptomatic). Baseline mammogram. History: Took hormonal contraceptives for 9 years beginning at age 13. Physical Findings: Nurse did not find any significant physical abnormalities on exam. MG Screening Mammo w CAD Bilateral CC and MLO view(s) were taken. The breast tissue is heterogeneously dense. This may lower the sensitivity of mammography. There is no discrete abnormality. These results were verbally communicated with the patient and result sheet given to the patient on 06/21/20. ASSESSMENT: Negative, BI-RAD 1 RECOMMENDATION: Routine screening mammogram of both breasts in 1 year.
== END | disposition home or self-care (01) ==
LOC: RADMAMWWP 08:23
PROVIDERS: ATTEND Family Medicine
DX: Z12.31 Encounter for screening mammogram for malignant neoplasm of breast (principal)
CPT/HCPCS: 77067

== ENCOUNTER 2021-08-16 23:36 | Emergency (ER) | payer OTHER ==
[2021-08-17] VITALS: BP 150/100; PULSE 86; RESP 16; TEMP 98.5
[2021-08-17] MEDS ORDERED: LIDOCAINE VISCOUS 2% 15 ML CUP MUCOUS MEM STA (05:05)
--- NOTE | 2021-08-17 06:56 | ED ---
ENT HPI - General Chief complaint: ENT Stated complaint: poss something stuck in throat Time Seen by Provider: 08/17/21 04:39 Source: patient Mode of arrival: ambulatory Limitations: no limitations - History of Present Illness MD complaint: sore throat Onset/Timin -: days(s) Severity: moderate Quality: burning, aching Consistency: constant Improves with: none Worsens with: none Associated Symptoms: sore throat - Related Data Home Medications Medication Instructions Recorded Confirmed FLUoxetine HCL [PROzac] 40 mg PO HS 05/20/17 05/25/17 Previous Rx's Medication Instructions Recorded Hydrocodone/Acetaminophen [[place] 1 - 2 each PO Q6HR PRN #60 tab 05/25/17 5-325] Azithromycin [Zithromax Z-pack (6 250 mg PO DIRECTED #6 tab 08/17/21 tabs)] Allergies Allergy/AdvReac Type Severity Reaction Status Date / Time sertraline [From Zoloft] Allergy Anaphylaxis Verified 08/16/21 23:56 Review of Systems ROS Statement: Those systems with pertinent positive or pertinent negative responses have been documented in the HPI. ROS Other: All systems not noted in ROS Statement are negative. Constitutional: Denies: fever, chills ENT: Reports: throat pain. Denies: congestion Respiratory: Denies: cough, dyspnea Cardiovascular: Denies: chest pain, palpitations Gastrointestinal: Denies: abdominal pain, vomiting, diarrhea Skin: Denies: rash Neurological: Denies: headache Past Medical History Past Medical History: Musculoskeletal Disorder Additional Past Medical History / Comment(s): slipped & fell Sunday-wearing splint right ankle History of Any Multi-Drug Resistant Organisms: None Reported Past Surgical History: Section, Tubal Ligation Past Anesthesia/Blood Transfusion Reactions: No Reported Reaction Past Psychological History: Depression Smoking Status: Current every day smoker Past Alcohol Use History: Daily Past Drug Use History: None Reported - Past Family History Mother Family Medical History: Hypertension Additional Family Medical History / Comment(s): skin CA Father Family Medical History: Cancer Additional Family Medical History / Comment(s): skin CA General Exam Limitations: no limitations General appearance: alert, in no apparent distress Head exam: Present: atraumatic, normocephalic Eye exam: Present: normal appearance. Absent: scleral icterus, conjunctival injection ENT exam: Present: mucous membranes moist, TM's normal bilaterally, normal external ear exam. Absent: normal oropharynx (Injection of the pharynx. No exudate. The uvula is midline with no edema.) Neck exam: Present: normal inspection, tenderness, full ROM, lymphadenopathy. Absent: meningismus Respiratory exam: Present: normal lung sounds bilaterally. Absent: respiratory distress, wheezes, rales, rhonchi, stridor Cardiovascular Exam: Present: regular rate, normal rhythm, normal heart sounds. Absent: systolic murmur, diastolic murmur, rubs, gallop GI/Abdominal exam: Present: soft. Absent: distended, tenderness, guarding, rebound, rigid, mass Extremities exam: Present: normal inspection, normal capillary refill Neurological exam: Present: alert Skin exam: Present: warm, dry, intact, normal color. Absent: rash Course Vital Signs 08/16/21 23:57 Temperature 98.5 F Pulse Rate 86 Respiratory 16 Rate Blood Pressure 150/100 O2 Sat by Pulse 99 Oximetry Medical Decision Making - Lab Data Lab Results 08/17/21 Range/Units 05:05 Group A Strep Rapid Negative (Negative) Disposition Clinical Impression: Acute pharyngitis Disposition: HOME SELF-CARE Condition: Good Instructions (If sedation given, give patient instructions): Pharyngitis (ED) Prescriptions: Azithromycin [Zithromax Z-pack (6 tabs)] 250 mg PO DIRECTED #6 tab Is patient prescribed a controlled substance at d/c from ED?: No Referrals: Jenny Jin DO [Primary Care Provider] - 1-2 days
== END 2021-08-17 07:04 | disposition home or self-care (01) ==
LOC: EC 23:36
DX: J02.9 Acute pharyngitis, unspecified (principal); F32.A Depression, unspecified; F17.200 Nicotine dependence, unspecified, uncomplicated; Z79.899 Other long term (current) drug therapy
CPT/HCPCS: 87081; 87430; 99283